=== PATIENT | female | born 1955 | race Caucasian/White ===

== ENCOUNTER 2020-08-05 10:35 | Emergency (ER) | payer MEDICARE, MEDICAID ==
--- NOTE | 2020-08-05 10:40 | EDM.PDOC ---
ED HPI GENERAL MEDICAL PROBLEM - General Chief Complaint: Lower Extremity Injury/Pain Stated Complaint: fall, right ankle injury Time Seen by Provider: 08/05/20 10:39 Source of Information: Reports: Patient, Old Records ([facility] chart/EMR) History Limitations: Reports: Altered Mental Status (Baseline mental deficit with anxiety depression disorder) - History of Present Illness INITIAL COMMENTS - FREE TEXT/NARRATIVE: The patient was brought to the emergency room via private automobile by her friend for evaluation of 5/10 right ankle pain after she twisted her ankle and slipped down 3 steps at home at about 10 AM this morning. No treatment prior to arrival, including pain medications, ice, etc... Per medical records the patient has fractured her right ankle in the past on 12/11/2004. She denies any significant fall, neck/back pain, head injury, change in neurological status, etc. No recent history of abdominal pain, heartburn, nausea, diarrhea, melena, gross hematochezia, or any food intolerance, including fatty foods, etc.. The patient also denies any recent fever, cough, wheezing, dyspnea, etc.. Onset: Today, Sudden Onset Date: 08/05/20 Onset Time: 10:00 Duration: Constant Location: Reports: Lower Extremity, Right. Denies: Head, Face, Neck, Chest, Abdomen, Back, Pelvis, Upper Extremity, Left, Upper Extremity, Right, Lower Extremity, Left, Radiates to Quality: Reports: Same as Previous Episode, Throbbing Severity: Moderate Improves with: Reports: Rest Worsens with: Reports: Movement Context: Reports: Trauma (As above) Associated Symptoms: Denies: Confusion, Chest Pain, Cough, Diaphoresis, Fever/Chills, Headaches, Loss of Appetite, Nausea/Vomiting, Shortness of Breath, Syncope, Weakness Treatments MEDIA DIRECTOR: Reports: Other (see below) (None) Right Ankle Pain Score (Numeric/FACES): 5 - Related Data Allergies Allergy/AdvReac Type Severity Reaction Status Date / Time No Known Allergies Allergy Verified 08/05/20 10:47 Home Meds: Home Meds lamoTRIgine [Lamotrigine] 200 mg PO BID 12/29/13 [History] Lisinopril/Hydrochlorothiazide [Lisinopril-Hctz 10-12.5 mg Tab] 1 tab PO DAILY 11/26/15 [History] QUEtiapine Fumarate [Seroquel Xr] 300 mg PO BEDTIME 11/26/15 [History] QUEtiapine [SEROquel XR] 200 mg PO DAILY 11/26/15 [History] ClonazePAM [KlonoPIN] 0.5 mg PO BID PRN 06/24/18 [History] Montelukast [Singulair] 10 mg PO DAILY 06/24/18 [History] Omeprazole 40 mg PO DAILY 06/24/18 [History] Alendronate Sodium [Fosamax] 70 mg PO Q7D 08/05/20 [History] Solifenacin Succinate 5 mg PO DAILY 08/05/20 [History] atorvaSTATin [Lipitor] 20 mg PO DAILY 08/05/20 [History] Past Medical History HEENT History: Reports: Allergic Rhinitis, Impaired Vision, Other (See Below) Other HEENT History: She works glasses. Deviated septum. Cardiovascular History: Reports: High Cholesterol, Hypertension Gastrointestinal History: Reports: Chronic Constipation Musculoskeletal History: Reports: Arthritis, Back Pain, Chronic, Fracture, Neck Pain, Chronic, Osteoarthritis, Osteoporosis, Other (See Below) Other Musculoskeletal History: Proximal phalangeal fractures of digits #2, 3, and 4 of the left hand on 06/11/12. Trimalleolar left ankle fracture on 02/09/09 with previous right ankle fracture on 12/11/04. Neurological History: Reports: Other (See Below) Other Neuro History: Cerebral atrophy and cerebral microvascular disease by CT scan and MRI as below. Psychiatric History: Reports: Anxiety, Bipolar, Depression, Psych Hospitalization(s), Psychosis, Suicidal Ideation, Other (See Below) Other Psychiatric History: Suicidal ideation with emergency room visit in this facility on 11/26/15 and subsequent transfer and hospitalization at [facility]. Endocrine/Metabolic History: Reports: Obesity/BMI 30+, Osteopenia, Osteoporosis, Other (See Below) Other Endocrine/Metabolic History: Thyroid nodules by ultrasound on 09/14/09, hx of goiter - Infectious Disease History Infectious Disease History: Reports: Chicken Pox - Past Surgical History GI Surgical History: Reports: Appendectomy Endocrine Surgical History: Reports: Thyroid Biopsy, Thyroidectomy, Other (See Below) Other Endocrine Surgeries/Procedures: Thyroid biopsy versus partial thyroidectomy secondary to thyroid nodules and goiter as above. Musculoskeletal Surgical History: Reports: ORIF, Other (See Below) Other Musculoskeletal Surgeries/Procedures:: ORIF of the left ankle in January 2009 - Past Imaging History Past Imaging History: Reports: CAT Scan (CT of the head on 01/12/2020 and 10/13/2008.), DEXA Scan (01/25/2020), Mammogram (Last mammogram on 01/08/2020. Does not she will put weight on it and if you feel more comfortable leaving it on than just put a great big garbage bag around it and take it off topic and do that to whichever works best for you), MRI (Brain on 01/18/2020.), Ultrasound (Last thyroid ultrasound on 05/10/15) Social & Family History - Family History Psychiatric: Reports: Anxiety, Bipolar, Depression, Other (See Below) Other Psychiatric Family History: Mother with bipolar disorder. - Tobacco Use Smoking Status *Q: Never Smoker Tobacco Use Within Last Twelve Months: No Other Tobacco Use Within Last Twelve Months: Despite previous medical records patient denies any previous tobacco use. Used Tobacco, but Quit: No Smoking Cessation Information Provided To Patient: No Second Hand Smoke Exposure: No Second Hand Smoke Education Provided: No - Caffeine Use Caffeine Use: Reports: Coffee (1 pot daily), Soda (1/day). Denies: Energy Drinks, Tea - Alcohol Use Alcohol Use History: No Days Per Week of Alcohol Use: 0 Number of Drinks Per Day: 0 Number of Drinks Per Day Comment: No previous DWIs, problems with alcohol abuse, etc. Total Drinks Per Week: 0 Alcohol Use in Last Twelve Months: No - Recreational Drug Use Recreational Drug Use: No Drug Use in Last 12 Months: No Recreational Drug Type: Denies: Amphetamines (Speed), Cocaine, Heroin, Inhalants (Glues, Solvents, Aerosols), LSD (Acid), Marijuana/Hashish, Methamphetamine, Morphine, Oxycodone - Living Situation & Occupation Living situation: Reports: , Alone, Other (Closely followed by her family and home health) Occupation: Disabled (Secondary to her mental deficits and emotional status) Review of Systems - Review of Systems Review Of Systems: Comprehensive ROS is negative, except as noted in HPI. ED EXAM, GENERAL - Physical Exam Exam: See Below Exam Limited By: No Limitations General Appearance: Alert, WD/WN, No Apparent Distress, Anxious (Mild to moderate) Head: Atraumatic, Normocephalic. No: Facial Swelling, Facial Tenderness, Sinus Tenderness Neck: Normal Inspection, Supple, Non-Tender, Full Range of Motion. No: Lymphadenopathy (L), Lymphadenopathy (R), Thyromegaly Respiratory/Chest: No Respiratory Distress, Lungs Clear, Normal Breath Sounds, No Accessory Muscle Use, Chest Non-Tender. No: Pleural Rub, Retractions Cardiovascular: Normal Peripheral Pulses, Regular Rate, Rhythm, No Edema, No Gallop, No JVD, No Murmur, No Rub. No: Gallop/S3, Gallop/S4, Friction Rub Peripheral Pulses: 2+: Radial (L), Radial (R), Dorsalis Pedis (L), Dorsalis Pedis (R) GI/Abdominal: Normal Bowel Sounds, Soft, Non-Tender, No Organomegaly, No Distention, No Abnormal Bruit, No Mass, Pelvis Stable, Other (obese). No: Guarding (Female) Exam: Deferred Rectal (Female) Exam: Deferred Back Exam: Normal Inspection, Full Range of Motion. No: CVA Tenderness (L), CVA Tenderness (R), Muscle Spasm Extremities: No Pedal Edema, Normal Capillary Refill, Joint Swelling (Moderate right lateral malleolar swelling and effusion with moderate localized tenderness but no instability, crepitation, dislocation, or deformity), Leg Pain (Right ankle as above), Limited Range of Motion (Right ankle secondary to discomfort). No: Harpreet's Sign Neurological: Alert, Oriented, CN II-XII Intact, Normal Cognition, Normal Gait, No Motor/Sensory Deficits Psychiatric: Anxious (Mild to moderate), Depressed Mood (Borderline) Skin Exam: Warm, Dry, Intact, Normal Color, No Rash. No: Diaphoretic, Ecchymosis, Wound/Incision Lymphatic: No Adenopathy ED TRAUMA EXTREMITY PROCEDURES - Splinting Right Lower Extremity Splint Site: Right ankle Pre-Procedure NV Status: Normal Post-Procedure NV Status: Normal Splint Material: Air Splint, Other (4 inch Delonte wrap) Splint Design: Stirrup Applied & Form Fitted By: Nurse Provider Post-Splint Application NV Check: NV Status Normal, Good Position Complications: No Course - Vital Signs Last Recorded V/S: Last Vital Signs Temp 36.8 C 08/05/20 10:40 Pulse 82 08/05/20 10:40 Resp 16 08/05/20 10:40 BP 114/85 08/05/20 10:40 Pulse Ox 100 08/05/20 10:40 Vital Signs - 24 hr 08/05/20 10:40 Temperature [ 36.8 C Temporal] Pulse, 82 Peripheral [ Left Pulse Oximetry] Respiratory 16 Rate Blood Pressure 114/85 [Left Upper Arm ] O2 Sat by Pulse 100 Oximetry - Orders/Labs/Meds Orders: Active Orders 24 hr Category Date Time Status Ankle Min 3V Rt [CR] Stat Exams 08/05/20 10:43 Taken Durable Medical Equipment for Discharge [DME for Oth 08/05/20 10:57 Ordered Discharge] [COMM] Routine Durable Medical Equipment for Discharge [DME for Oth 08/05/20 10:58 Ordered Discharge] [COMM] Routine Durable Medical Equipment for Discharge [DME for Oth 08/05/20 11:00 Ordered Discharge] [COMM] Routine Obtain Past Medical Record [OM.PC] Routine Oth 08/05/20 10:42 Active Labs: None Meds: None - Radiology Interpretation Free Text/Narrative:: X-rays of the right ankle, 3 views, shows evidence of a hairline nondisplaced distal fibula fracture with no dislocation. Ankle mortise is intact. Departure - Departure Time of Disposition: 11:47 Disposition: Home, Self-Care 01 Condition: Good Clinical Impression: Peptic reflux disease, Mixed anxiety depressive disorder Closed right fibular fracture Qualifiers: Encounter type: initial encounter Fibula location: distal Fracture morphology: torus Qualified Code(s): S82.821A - Torus fracture of lower end of right fibula, initial encounter for closed fracture Hypertension Qualifiers: Hypertension type: essential hypertension Qualified Code(s): I10 - Essential (primary) hypertension Osteoarthritis Qualifiers: Osteoarthritis location: multiple joints Osteoarthritis type: primary Qualified Code(s): M89.49 - Other hypertrophic osteoarthropathy, multiple sites Hyperlipidemia Qualifiers: Hyperlipidemia type: unspecified Qualified Code(s): E78.5 - Hyperlipidemia, unspecified - Discharge Information *PRESCRIPTION DRUG MONITORING PROGRAM REVIEWED*: Not Applicable *COPY OF PRESCRIPTION DRUG MONITORING REPORT IN PATIENT DIMITRI: Not Applicable Instructions: Crutch Use, Adult, [id number], Nondisplaced Fibular Ankle Fracture Treated With Immobilization, Adult Referrals: Navya Belcher NP [Primary Care Provider] - Forms: ED Department Discharge Additional Instructions: 1. Followup with your regular provider in 7-10 days as directed for reevaluation, repeat x-rays of your right ankle, and probable short leg cast placement. Bring these discharge instructions with you to that visit. 2. Tylenol 650 mg by mouth every 4 hours and/or OTC ibuprofen 2-3 tabs by mouth every 6 hours with food as directed./needed. You may stagger these medications for 48-72 hours only, which essentially means that you are receiving a pain me dication about every 2 hours. 3. Wear Delonte wrap and Aircast splint at all times with exception of bathing 4. Ice packs and leg elevation as discussed. 5. Limited weightbearing of the right leg and foot has discussed with crutches to be used until otherwise directed. 6. Immediately after this visit verify that your cellular telephone's voicemail has been activated and is empty. Also verify that your home telephone's answering machine is operating properly and has space to receive messages. Note that it is sometimes necessary for us to be able to contact you at a later date to discuss your medical care. 7. Please remember that we are ALWAYS here for you and want to answer any questions you may have. Feel free to call the hospital any time and we call you back PRASAD. 8. Otherwise continue previous OTC medicines as before Sepsis Event Note (ED) - Focused Exam Vital Signs: Vital Signs Temp Pulse Resp BP Pulse Ox 08/05/20 10:40 36.8 C 82 16 114/85 100 - Problem List & Annotations (1) Closed right fibular fracture SNOMED Code(s): 502126689, 99691485798029218 Code(s): S82.401A - UNSP FRACTURE OF SHAFT OF RIGHT FIBULA, INIT FOR CLOS FX Status: Acute Priority: High Current Visit: Yes Onset Date: 08/05/20 Annotation/Comment:: Note air ankle splint and Delonte wrap applied by the nurse with crutches provided. Activity restrictions were discussed. Close follow-up by regular provider as per discharge instructions. Qualifiers: Encounter type: initial encounter Fibula location: distal Fracture morphology: torus Qualified Code(s): S82.821A - Torus fracture of lower end of right fibula, initial encounter for closed fracture (2) Mixed anxiety depressive disorder SNOMED Code(s): 389131440 Code(s): F41.8 - OTHER SPECIFIED ANXIETY DISORDERS Status: Chronic Priority: Medium Current Visit: Yes Annotation/Comment:: Stable by history (3) Hypertension SNOMED Code(s): 43740156 Code(s): I10 - ESSENTIAL (PRIMARY) HYPERTENSION Status: Chronic Priority: Medium Current Visit: Yes Annotation/Comment:: Good control in the emergency room. Continue to observe closely by regular provider. Qualifiers: Hypertension type: essential hypertension Qualified Code(s): I10 - Essential (primary) hypertension (4) Osteoarthritis SNOMED Code(s): 980418923 Code(s): M19.90 - UNSPECIFIED OSTEOARTHRITIS, UNSPECIFIED SITE Status: Chronic Priority: Medium Current Visit: Yes Annotation/Comment:: Otherwise stable by patient history with no evidence of other injury. Qualifiers: Osteoarthritis location: multiple joints Osteoarthritis type: primary Qualified Code(s): M89.49 - Other hypertrophic osteoarthropathy, multiple sites (5) Peptic reflux disease SNOMED Code(s): 323819464 Code(s): K21.9 - GASTRO-ESOPHAGEAL REFLUX DISEASE WITHOUT ESOPHAGITIS Status: Chronic Priority: Medium Current Visit: Yes Annotation/Comment:: Stable with current medical therapy by history. (6) Hyperlipidemia SNOMED Code(s): 19463898 Code(s): E78.5 - HYPERLIPIDEMIA, UNSPECIFIED Status: Chronic Priority: Medium Current Visit: Yes Annotation/Comment:: Currently under therapy. Qualifiers: Hyperlipidemia type: unspecified Qualified Code(s): E78.5 - Hyperlipidemia, unspecified - Problem List Review Problem List Initiated/Reviewed/Updated: Yes - My Orders Last 24 Hours: My Active Orders 08/05/20 10:42 Obtain Past Medical Record [OM.PC] Routine 08/05/20 10:43 Ankle Min 3V Rt [CR] Stat 08/05/20 10:57 Durable Medical Equipment for Discharge [DME for Discharge] [COMM] Routine 08/05/20 10:58 Durable Medical Equipment for Discharge [DME for Discharge] [COMM] Routine 08/05/20 11:00 Durable Medical Equipment for Discharge [DME for Discharge] [COMM] Routine - Assessment/Plan Last 24 Hours: My Active Orders 08/05/20 10:42 Obtain Past Medical Record [OM.PC] Routine 08/05/20 10:43 Ankle Min 3V Rt [CR] Stat 08/05/20 10:57 Durable Medical Equipment for Discharge [DME for Discharge] [COMM] Routine 08/05/20 10:58 Durable Medical Equipment for Discharge [DME for Discharge] [COMM] Routine 08/05/20 11:00 Durable Medical Equipment for Discharge [DME for Discharge] [COMM] Routine Assessment:: As above Plan: As above. Extensive precautions were given to the patient, who is in agreement with the treatment plan. See Patient Instructions for further treatment and plan.
[2020-08-05 10:44] VITALS: BP 114/85; PULSE 82
== END 2020-08-05 11:47 | disposition home or self-care (01) ==
LOC: LL.ED 10:35
DX: S82.821A Torus fracture of lower end of right fibula, initial encounter for closed fracture (principal); I10 Essential (primary) hypertension; M89.49 Other hypertrophic osteoarthropathy, multiple sites; K21.9 Gastro-esophageal reflux disease without esophagitis; F41.8 Other specified anxiety disorders; E78.5 Hyperlipidemia, unspecified; F31.9 Bipolar disorder, unspecified; F41.9 Anxiety disorder, unspecified; Z79.899 Other long term (current) drug therapy; E66.9 Obesity, unspecified; W10.9XXA Fall (on) (from) unspecified stairs and steps, initial encounter; Y92.009 Unspecified place in unspecified non-institutional (private) residence as the place of occurrence of the external cause
CPT/HCPCS: 73610-RT; 99283

== ENCOUNTER 2021-07-01 12:48 | Emergency (ER) | payer MEDICARE, MEDICAID ==
[2021-07-01 13:14] VITALS: PULSE 90
[2021-07-01] MEDS: LORazepam 1 MG Tab PO ONE (14:37)
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
[2021-07-01 16:45] VITALS: BP 156/99
== END 2021-07-01 14:45 | disposition home or self-care (01) ==
LOC: SUPCPDRO 12:48 → LL.ED 12:48
DX: F41.9 Anxiety disorder, unspecified (principal); E78.00 Pure hypercholesterolemia, unspecified; I10 Essential (primary) hypertension; M19.90 Unspecified osteoarthritis, unspecified site; E66.9 Obesity, unspecified; Z79.899 Other long term (current) drug therapy
CPT/HCPCS: 99283; A9270

== ENCOUNTER 2022-06-10 11:52 | Emergency (ER) | payer MEDICARE, MEDICAID ==
[2022-06-10 13:54] LABS: ANION GAP 11.3 meq/L (7-15); CHLORIDE,CL 99 mmol/L (98-107); SODIUM,NA 136 mmol/L (136-145)
[2022-06-10 13:55] LABS: ESTIMATED GFR 51 mL/min (>=60)
[2022-06-10 14:59] VITALS: BP 96/74; PULSE 124
== END 2022-06-10 14:25 | disposition home or self-care (01) ==
LOC: LL.ED 11:52
DX: S09.90XA Unspecified injury of head, initial encounter (principal); M25.551 Pain in right hip; E78.00 Pure hypercholesterolemia, unspecified; I10 Essential (primary) hypertension; Z79.899 Other long term (current) drug therapy; Z90.49 Acquired absence of other specified parts of digestive tract; W01.10XA Fall on same level from slipping, tripping and stumbling with subsequent striking against unspecified object, initial encounter
CPT/HCPCS: 36415; 70450; 71045; 72125; 80053; 81003; 83605; 85025; 93005; 99284

== ENCOUNTER 2022-06-29 14:32 | Emergency (ER) | payer MEDICARE, MEDICAID ==
[2022-06-29] MEDS ORDERED: Sodium Chloride 0.9% 10 ML Syringe FLUSH PRN (15:00)
[2022-06-29] MEDS ORDERED: Sodium Chloride 0.9% 1,000 ML IV ONE ×2 (15:01→16:42)
[2022-06-29 15:44] LABS: ANION GAP 7.4 meq/L (7-15)
[2022-06-29 19:31] VITALS: BP 88/63; PULSE 92
[2022-06-29] MEDS ORDERED: Amoxicillin/Clavulanate K 875-125 MG Tab PO SCH (20:00)
== END 2022-06-29 18:20 | disposition home or self-care (01) ==
LOC: LL.ED 14:32
DX: J01.10 Acute frontal sinusitis, unspecified (principal); E78.00 Pure hypercholesterolemia, unspecified; I10 Essential (primary) hypertension; Z79.01 Long term (current) use of anticoagulants; Z79.899 Other long term (current) drug therapy
CPT/HCPCS: 36415; 71045; 80053; 81003; 83735; 85025; 87040; 93005; 96360; 96361; 99284; J7030; 93010

== ENCOUNTER 2023-04-18 08:39 | Day surgery (SDC) | payer MEDICARE, MEDICAID ==
[~2023-04-18 08:39] MED LIST: Midazolam 1 MG/ML 2 ML SDV ONE; Propofol 200 MG/20 ML SDV ONE
[2023-04-18] MEDS ORDERED: Lactated Ringers 1,000 ML IV SCH (08:45)
[2023-04-18] MEDS ORDERED: Sodium Chloride 0.9% 10 ML Syringe FLUSH PRN (08:45)
[2023-04-18] MEDS ORDERED: Midazolam 1 MG/ML 2 ML SDV IVPUSH ONE (09:50)
[2023-04-18] MEDS ORDERED: Propofol 200 MG/20 ML SDV IVPUSH ONE (09:50)
[2023-04-18 10:23] VITALS: PULSE 76
[2023-04-18 10:25] VITALS: BP 134/75
== END 2023-04-18 11:35 | disposition home or self-care (01) ==
LOC: LL.SDS 08:39
PROVIDERS: ATTEND Surgery
DX: R19.4 Change in bowel habit (principal); Z53.09 Procedure and treatment not carried out because of other contraindication; F41.9 Anxiety disorder, unspecified; I10 Essential (primary) hypertension; E78.2 Mixed hyperlipidemia; F32.A Depression, unspecified; M35.3 Polymyalgia rheumatica; Z88.5 Allergy status to narcotic agent; Z79.899 Other long term (current) drug therapy
CPT/HCPCS: J7120

== ENCOUNTER 2023-05-30 10:35 | Day surgery (SDC) | payer MEDICARE, MEDICAID ==
[2023-05-30] MEDS ORDERED: Sodium Chloride 0.9% 10 ML Syringe FLUSH PRN (10:45)
[2023-05-30] MEDS: Lactated Ringers 1,000 ML IV SCH (11:28)
[2023-05-30 13:15] VITALS: BP 153/94; PULSE 72
== END 2023-05-30 13:25 | disposition home or self-care (01) ==
LOC: LL.SDS 10:35
PROVIDERS: ATTEND Surgery
DX: R19.5 Other fecal abnormalities (principal); Q43.8 Other specified congenital malformations of intestine; F41.9 Anxiety disorder, unspecified; F32.A Depression, unspecified; E78.5 Hyperlipidemia, unspecified; E04.9 Nontoxic goiter, unspecified; Z79.899 Other long term (current) drug therapy; Z88.5 Allergy status to narcotic agent; Z96.641 Presence of right artificial hip joint
CPT/HCPCS: 00812; J2250; J2704; J7120

== ENCOUNTER 2024-10-01 14:15 | Emergency (ER) | payer MEDICARE, MEDICAID ==
[2024-10-01] MEDS: OLANZapine 10 MG Vial IM ONE (14:20)
[2024-10-01 14:28] LABS: RED BLOOD CELL COUNT 3.81 M/uL (3.77-5.09); WHITE BLOOD CELL COUNT,WBC 9.4 K/uL (4.0-10.2)
[2024-10-01 14:29] LABS: BASOPHILS PERCENT AUTO 0.5 % (0.0-2.0); EOSINOPHILS PERCENT AUTO 2.1 % (0.0-5.0); HEMATOCRIT 35.3 % (34.0-46.0); HEMOGLOBIN 11.5 g/dL (11.7-15.5); LYMPHOCYTES PERCENT AUTO 45.1 % (10.0-50.0); MEAN CORPUSCULAR HEMOGLOBIN 30.2 pg (28.2-33.3); MEAN CORPUSCULAR HGB CONC 32.6 g/dL (31.7-36.0); MEAN CORPUSCULAR VOLUME 92.7 fL (84.0-98.0); MONOCYTES PERCENT AUTO 11.5 % (2.0-14.0); NEUTROPHILS PERCENT AUTO 40.8 % (45.0-80.0); PLATELET COUNT,PLT 302 K/uL (150-350); RED CELL DISTRIBUTION WIDTH 13.4 % (11.2-14.1)
[2024-10-01 14:30] LABS: BASOPHILS ABSOLUTE AUTO 0.05 K/uL (0.00-0.20); LYMPHOCYTES ABSOLUTE AUTO 4.24 K/uL (0.50-3.50); MONOCYTES ABSOLUTE AUTO 1.08 K/uL (0.00-1.00); NEUTROPHILS ABSOLUTE AUTO 3.84 K/uL (1.40-7.00)
[2024-10-01 14:45] LABS: ALANINE AMINOTRANSFERASE,ALT 40 U/L (12-78); ALBUMIN 4.1 g/dL (3.4-5.0); ALKALINE PHOSPHATASE 113 IU/L (46-116); ANION GAP 14.5 meq/L (7-15); ASPARTATE AMNIOTRANSFERASE,AST 37 U/L (15-37); BILIRUBIN TOTAL 0.6 mg/dL (0.2-1.0); BLOOD UREA NITROGEN,BUN 16 mg/dL (7-18); CALCIUM 10.1 mg/dL (8.5-10.1); CARBON DIOXIDE,CO2 21.5 mmol/L (21.0-32.0); CHLORIDE,CL 101 mmol/L (98-107); CREATININE 1.11 mg/dL (0.51-1.17); ETHANOL BLOOD MEDICAL 0.002 g/dL (0.000-0.080); GLUCOSE RANDOM 107 mg/dL (70-99); PROTEIN TOTAL,TP 7.5 g/dL (6.4-8.2); SODIUM,NA 137 mmol/L (136-145)
[2024-10-01 14:50] LABS: ESTIMATED GFR 53 mL/min (>=60)
[2024-10-01] MEDS: QUEtiapine 100 MG Tab PO ONE (15:08)
[2024-10-01 15:17] LABS: APPEARANCE,URINE CLEAR; BILIRUBIN,URINE NEGATIVE (NEGATIVE); COLOR,URINE YELLOW; GLUCOSE,URINE NEGATIVE (NEGATIVE); KETONES,URINE NEGATIVE (NEGATIVE); LEUKOCYTE ESTERASE,URINE TRACE (NEGATIVE); NITRITE,URINE NEGATIVE (NEGATIVE); OCCULT BLOOD,URINE TRACE-INTACT (NEGATIVE); PROTEIN,URINE NEGATIVE (NEGATIVE); UROBILINOGEN,URINE 0.2 E.U./dL (0.2-1.0)
[2024-10-01 15:33] LABS: AMPHETAMINES SCREEN, URINE NEGATIVE (NEGATIVE); BARBITURATE SCREEN,URINE NEGATIVE (NEGATIVE); BENZODIAZEPINES SCREEN,URINE NEGATIVE (NEGATIVE); COCAINE METABOLITES,URINE NEGATIVE (NEGATIVE); EDDP,URINE SCREEN NEGATIVE (NEGATIVE); METHAMPHETAMINES SCREEN, URINE NEGATIVE (NEGATIVE); TCA SCREEN,URINE NEGATIVE (NEGATIVE); THC SCREEN,URINE 50 NG/ML NEGATIVE (NEGATIVE)
[2024-10-01 15:38] LABS: BUPRENORPHINE SCREEN,URINE NEGATIVE (NEGATIVE); OXYCODONE SCREEN,URINE NEGATIVE (NEGATIVE)
[2024-10-01 15:39] LABS: BACTERIA,URINE NOT SEEN /HPF (NONE TO FEW); EPITHELIAL CELLS,URINE FEW /LPF; RBC,URINE 0-5 /HPF; WBC,URINE 0-5 /HPF
[2024-10-01] MEDS: Acetaminophen 325 MG Tab PO ONE (19:19)
[2024-10-01] MEDS: diphenhydrAMINE 50 MG/ML SDV IM PRN (19:20)
[2024-10-01] MEDS: Haloperidol Lactate 5 MG/ML SDV IM PRN (19:22)
[2024-10-01] MEDS: LORazepam 2 MG/ML SDV IM PRN (19:23)
[2024-10-01 19:40] VITALS: BP 126/89; PULSE 89
== END 2024-10-01 20:15 ==
LOC: LL.ED 14:15 → SUPCPDRO 14:15 → LL.ED 20:15
DX: F41.9 Anxiety disorder, unspecified (principal)
CPT/HCPCS: 36415; 80053; 80305; 80307; 81001; 85025; 87086; 96372; 99284; 99285; A9270; J1200; J1630; J2060; J2359

== ENCOUNTER 2024-11-10 21:13 | Inpatient (IN) | payer MEDICARE, MEDICAID ==
[2024-11-10] MEDS: Naloxone 0.4 MG/ML SDV NAS ONE (21:20)
[2024-11-10] MEDS: Lactated Ringers 1,000 ML IV SCH (21:27)
[2024-11-10 21:37] LABS: WHITE BLOOD CELL COUNT,WBC 11.3 K/uL (4.0-10.2)
[2024-11-10 21:38] LABS: BASOPHILS ABSOLUTE AUTO 0.04 K/uL (0.00-0.20); BASOPHILS PERCENT AUTO 0.4 % (0.0-2.0); EOSINOPHILS ABSOLUTE AUTO 0.05 K/uL (0.00-0.50); EOSINOPHILS PERCENT AUTO 0.4 % (0.0-5.0); HEMATOCRIT 31.6 % (34.0-46.0); HEMOGLOBIN 10.4 g/dL (11.7-15.5); IMMATURE GRAN ABSOLUTE AUTO 0.13 10^3/uL (0.00-0.50); IMMATURE GRAN PERCENT AUTO 1.2 % (0.0-5.0); LYMPHOCYTES ABSOLUTE AUTO 1.47 K/uL (0.50-3.50); MEAN CORPUSCULAR HEMOGLOBIN 30.2 pg (28.2-33.3); MEAN CORPUSCULAR HGB CONC 32.9 g/dL (31.7-36.0); MEAN CORPUSCULAR VOLUME 91.9 fL (84.0-98.0); MONOCYTES ABSOLUTE AUTO 1.14 K/uL (0.00-1.00); MONOCYTES PERCENT AUTO 10.1 % (2.0-14.0); NEUTROPHILS ABSOLUTE AUTO 8.47 K/uL (1.40-7.00); NEUTROPHILS PERCENT AUTO 74.9 % (45.0-80.0); PLATELET COUNT,PLT 327 K/uL (150-350); RED BLOOD CELL COUNT 3.44 M/uL (3.77-5.09); RED CELL DISTRIBUTION WIDTH 12.6 % (11.2-14.1)
[2024-11-10] MEDS: Lactated Ringers 1,000 ML IV STA (21:42)
[2024-11-10 21:49] LABS: APPEARANCE,URINE SLIGHTLY CLOUDY; BILIRUBIN,URINE NEGATIVE (NEGATIVE); COLOR,URINE YELLOW; GLUCOSE,URINE NEGATIVE (NEGATIVE); KETONES,URINE NEGATIVE (NEGATIVE); LEUKOCYTE ESTERASE,URINE NEGATIVE (NEGATIVE); NITRITE,URINE NEGATIVE (NEGATIVE); OCCULT BLOOD,URINE TRACE-INTACT (NEGATIVE); PROTEIN,URINE NEGATIVE (NEGATIVE); UROBILINOGEN,URINE 0.2 E.U./dL (0.2-1.0)
[2024-11-10 21:56] LABS: AMPHETAMINES SCREEN, URINE NEGATIVE (NEGATIVE); BARBITURATE SCREEN,URINE NEGATIVE (NEGATIVE); BENZODIAZEPINES SCREEN,URINE NEGATIVE (NEGATIVE); COCAINE METABOLITES,URINE NEGATIVE (NEGATIVE); EDDP,URINE SCREEN NEGATIVE (NEGATIVE); METHAMPHETAMINES SCREEN, URINE NEGATIVE (NEGATIVE); TCA SCREEN,URINE NEGATIVE (NEGATIVE); THC SCREEN,URINE 50 NG/ML NEGATIVE (NEGATIVE)
[2024-11-10 21:57] LABS: BUPRENORPHINE SCREEN,URINE NEGATIVE (NEGATIVE); OXYCODONE SCREEN,URINE NEGATIVE (NEGATIVE)
[2024-11-10 21:58] LABS: PROTHROMBIN TIME 10.4 SEC (9.0-11.1)
[2024-11-10 21:59] LABS: ACETAMINOPHEN 29.4 ug/mL (10.0-30.0); ALANINE AMINOTRANSFERASE,ALT 21 U/L (12-78); ALBUMIN 3.5 g/dL (3.4-5.0); ALKALINE PHOSPHATASE 126 IU/L (46-116); ASPARTATE AMNIOTRANSFERASE,AST 15 U/L (15-37); BILIRUBIN TOTAL 0.5 mg/dL (0.2-1.0); BLOOD UREA NITROGEN,BUN 15 mg/dL (7-18); CARBON DIOXIDE,CO2 18.1 mmol/L (21.0-32.0); CHLORIDE,CL 92 mmol/L (98-107); CREATININE 1.33 mg/dL (0.51-1.17); ETHANOL BLOOD MEDICAL 0.001 g/dL (0.000-0.080); GLUCOSE RANDOM 240 mg/dL (70-99); LIPASE 29 U/L (16-77); MAGNESIUM 1.7 mg/dL (1.8-2.4); POTASSIUM,K 3.5 mmol/L (3.5-5.1); PRO B-TYPE NATRIUR PEPT,BNPPRO 1776 pg/mL (0-125); PROTEIN TOTAL,TP 6.9 g/dL (6.4-8.2); SODIUM,NA 128 mmol/L (136-145)
[2024-11-10 21:59] LABS: BACTERIA,URINE RARE /HPF (NONE TO FEW); EPITHELIAL CELLS,URINE RARE /LPF; RBC,URINE 0-5 /HPF; WBC,URINE 0-5 /HPF
[2024-11-10 22:01] LABS: ANION GAP 21.4 meq/L (7-15); ESTIMATED GFR 43 mL/min (>=60)
[2024-11-10] MEDS: Sodium Chloride 3% 500 ML IV SCH (22:25)
[2024-11-10] MEDS: Lactated Ringers 1,000 ML IV ONE (23:03)
[2024-11-11] MEDS ORDERED: ClonazePAM 0.5 MG Tab PO PRN (03:14)
[2024-11-11] MEDS ORDERED: Polyethylene Glycol 3350 Powder 17 GM Packet PO PRN (03:14)
[2024-11-11] MEDS ORDERED: Aspirin 81 MG Tab.EC PO SCH (03:15)
[2024-11-11] MEDS: Alendronate 70 MG Tab PO SCH (05:48)
[2024-11-11] MEDS: Acetaminophen 650 MG Tab.ER PO SCH ×2 (05:48→07:31)
[2024-11-11] MEDS: lamoTRIgine 25 MG Tab PO SCH (07:31)
[2024-11-11] MEDS: Multivitamin Tab PO SCH (07:31)
[2024-11-11] MEDS: lamoTRIgine 100 MG Tab PO SCH (07:31)
[2024-11-11] MEDS: Ferrous Sulfate 325 MG Tab PO SCH (07:32)
[2024-11-11] MEDS: Cholecalciferol (Vitamin D3) 25 MCG Tab PO SCH (07:32)
[2024-11-11] MEDS: Lisinopril 20 MG Tab PO SCH (07:32)
[2024-11-11] MEDS: Omeprazole 20 MG Cap.CR PO SCH (07:33)
[2024-11-11] MEDS: Trospium 20 MG Tab PO SCH (07:33)
[2024-11-11] MEDS: Vitamin B Complex Tab PO SCH (07:33)
[2024-11-11] MEDS: Sennosides/Docusate Sodium 50-8.6 MG Tab PO SCH (07:33)
[2024-11-11 07:43] LABS: BASOPHILS ABSOLUTE AUTO 0.03 K/uL (0.00-0.20); BASOPHILS PERCENT AUTO 0.3 % (0.0-2.0); EOSINOPHILS PERCENT AUTO 1.1 % (0.0-5.0); HEMATOCRIT 31.2 % (34.0-46.0); HEMOGLOBIN 10.2 g/dL (11.7-15.5); IMMATURE GRAN ABSOLUTE AUTO 0.09 10^3/uL (0.00-0.50); LYMPHOCYTES ABSOLUTE AUTO 1.98 K/uL (0.50-3.50); LYMPHOCYTES PERCENT AUTO 22.3 % (10.0-50.0); MEAN CORPUSCULAR HEMOGLOBIN 29.9 pg (28.2-33.3); MEAN CORPUSCULAR HGB CONC 32.7 g/dL (31.7-36.0); MEAN CORPUSCULAR VOLUME 91.5 fL (84.0-98.0); MONOCYTES ABSOLUTE AUTO 1.03 K/uL (0.00-1.00); MONOCYTES PERCENT AUTO 11.6 % (2.0-14.0); NEUTROPHILS ABSOLUTE AUTO 5.63 K/uL (1.40-7.00); NEUTROPHILS PERCENT AUTO 63.7 % (45.0-80.0); PLATELET COUNT,PLT 318 K/uL (150-350); RED BLOOD CELL COUNT 3.41 M/uL (3.77-5.09); RED CELL DISTRIBUTION WIDTH 12.9 % (11.2-14.1); WHITE BLOOD CELL COUNT,WBC 8.9 K/uL (4.0-10.2)
[2024-11-11 07:54] LABS: PROTHROMBIN TIME 10.1 SEC (9.0-11.1)
[2024-11-11 07:59] LABS: ALBUMIN 3.1 g/dL (3.4-5.0); ANION GAP 11.7 meq/L (7-15); BILIRUBIN TOTAL 0.4 mg/dL (0.2-1.0); CALCIUM 8.8 mg/dL (8.5-10.1); CARBON DIOXIDE,CO2 23.3 mmol/L (21.0-32.0); CREATININE 0.87 mg/dL (0.51-1.17); EST CRCL DRUG DOSING (CG) 51.96 mL/min; POTASSIUM,K 4.1 mmol/L (3.5-5.1); PROTEIN TOTAL,TP 6.3 g/dL (6.4-8.2)
[2024-11-11] MEDS ORDERED: SOLIFENACIN SUCCINATE 5 MG PO SCH (08:00)
[2024-11-11] MEDS ORDERED: VITAMIN B COMPLEX PO SCH (08:00)
[2024-11-11] MEDS ORDERED: Non-Formulary Medication 1 Each (Multivitamin [Multi-Vitamin Daily] 1 EACH Tablet) PO SCH (08:00)
[2024-11-11] MEDS: Sodium Chloride 0.9% 10 ML Syringe FLUSH PRN (08:25)
[2024-11-11 10:56] VITALS: BP 120/71; PULSE 82
[2024-11-11] MEDS ORDERED: QUEtiapine 100 MG Tab PO SCH (20:00)
[2024-11-11] MEDS ORDERED: atorvaSTATin 20 MG Tab PO SCH (20:00)
[2024-11-11] MEDS ORDERED: QUETIAPINE FUMARATE 200 MG PO SCH (20:00)
[2024-11-11] MEDS ORDERED: Donepezil 10 MG Tab PO SCH (20:00)
[2024-11-12] MEDS ORDERED: Alendronate 70 MG Tab PO SCH (07:00)
[2024-11-13] MEDS ORDERED: Aspirin 81 MG Tab.EC PO SCH (08:00)
== END 2024-11-11 10:15 | disposition home or self-care (01) | DRG 918 ==
LOC: LL.ED 21:13 → LL.MS 22:52 → UNDOADMIN 22:52 → LL.MS 23:18
PROVIDERS: ADMIT Physician Assistant; ATTEND Physician Assistant
DX: T43.591A Poisoning by other antipsychotics and neuroleptics, accidental (unintentional), initial encounter (principal); E87.1 Hypo-osmolality and hyponatremia; F31.9 Bipolar disorder, unspecified; F31.10 Bipolar disorder, current episode manic without psychotic features, unspecified; H54.7 Unspecified visual loss; K59.09 Other constipation; M19.90 Unspecified osteoarthritis, unspecified site; Z96.649 Presence of unspecified artificial hip joint; F15.90 Other stimulant use, unspecified, uncomplicated; I95.9 Hypotension, unspecified; E86.0 Dehydration; Y92.89 Other specified places as the place of occurrence of the external cause; Z88.8 Allergy status to other drugs, medicaments and biological substances; Z79.1 Long term (current) use of non-steroidal anti-inflammatories (NSAID); Z79.82 Long term (current) use of aspirin; Z79.2 Long term (current) use of antibiotics; Z79.899 Other long term (current) drug therapy; Z79.02 Long term (current) use of antithrombotics/antiplatelets; Z87.81 Personal history of (healed) traumatic fracture; Z90.49 Acquired absence of other specified parts of digestive tract
CPT/HCPCS: 36415; 51702; 80053; 80143; 80305-QW; 80307; 81001; 83605; 83690; 83735; 83880; 84484; 85025; 85610; 96360; 99223; 99239; 99285-25; A9270-GY; J2310; J7040; J7120

== ENCOUNTER 2024-12-16 02:12 | Emergency (ER) | payer MEDICARE, MEDICAID ==
[2024-12-16] MEDS: Haloperidol Lactate 5 MG/ML SDV IM ONE (02:33)
[2024-12-16 02:47] LABS: BASOPHILS ABSOLUTE AUTO 0.06 K/uL (0.00-0.20); BASOPHILS PERCENT AUTO 0.8 % (0.0-2.0); EOSINOPHILS ABSOLUTE AUTO 0.19 K/uL (0.00-0.50); EOSINOPHILS PERCENT AUTO 2.4 % (0.0-5.0); HEMATOCRIT 35.8 % (34.0-46.0); HEMOGLOBIN 11.5 g/dL (11.7-15.5); IMMATURE GRAN ABSOLUTE AUTO 0.13 10^3/uL (0.00-0.04); IMMATURE GRAN PERCENT AUTO 1.7 % (0.0-0.4); LYMPHOCYTES PERCENT AUTO 25.7 % (10.0-50.0); MEAN CORPUSCULAR HEMOGLOBIN 28.9 pg (28.2-33.3); MEAN CORPUSCULAR HGB CONC 32.1 g/dL (31.7-36.0); MEAN CORPUSCULAR VOLUME 89.9 fL (84.0-98.0); MONOCYTES ABSOLUTE AUTO 1.24 K/uL (0.00-1.00); NEUTROPHILS ABSOLUTE AUTO 4.15 K/uL (1.40-7.00); NEUTROPHILS PERCENT AUTO 53.4 % (45.0-80.0); PLATELET COUNT,PLT 425 K/uL (150-350); RED BLOOD CELL COUNT 3.98 M/uL (3.77-5.09); RED CELL DISTRIBUTION WIDTH 12.6 % (11.2-14.1); WHITE BLOOD CELL COUNT,WBC 7.8 K/uL (4.0-10.2)
[2024-12-16 03:08] LABS: ALANINE AMINOTRANSFERASE,ALT 26 U/L (12-78); ALBUMIN 3.6 g/dL (3.4-5.0); ALKALINE PHOSPHATASE 142 IU/L (46-116); ANION GAP 12.5 meq/L (7-15); ASPARTATE AMNIOTRANSFERASE,AST 19 U/L (15-37); BILIRUBIN TOTAL 0.2 mg/dL (0.2-1.0); BLOOD UREA NITROGEN,BUN 10 mg/dL (7-18); CALCIUM 9.6 mg/dL (8.5-10.1); CARBON DIOXIDE,CO2 25.5 mmol/L (21.0-32.0); CHLORIDE,CL 101 mmol/L (98-107); CREATININE 0.98 mg/dL (0.51-1.17); GLUCOSE RANDOM 107 mg/dL (70-99); POTASSIUM,K 4.8 mmol/L (3.5-5.1); PROTEIN TOTAL,TP 7.6 g/dL (6.4-8.2); SODIUM,NA 139 mmol/L (136-145)
[2024-12-16 03:09] LABS: ESTIMATED GFR 62 mL/min (>=60)
[2024-12-16] MEDS: OLANZapine 5 MG Tab.DIS PO ONE (03:48)
[2024-12-16 04:02] VITALS: BP 133/89; PULSE 86
== END 2024-12-16 04:31 ==
LOC: LL.ED 02:12
DX: F31.9 Bipolar disorder, unspecified (principal); F69 Unspecified disorder of adult personality and behavior; E78.00 Pure hypercholesterolemia, unspecified; M19.90 Unspecified osteoarthritis, unspecified site; Z90.49 Acquired absence of other specified parts of digestive tract; Z88.5 Allergy status to narcotic agent; Z79.82 Long term (current) use of aspirin; Z79.899 Other long term (current) drug therapy
CPT/HCPCS: 36415; 80053; 85025; 96372; 99284; 99285-25; A9270-GY; J1630